=== PATIENT | male | born 1990 | race Hispanic/Latino ===

== ENCOUNTER 2016-10-25 15:07 | Emergency (ER) | payer BC ==
--- NOTE | 2016-10-25 15:42 | ED PDOC ---
Arrival/HPI - General Historian: Patient - General Time Seen by Provider: 10/25/16 15:19 - History of Present Illness Narrative History of Present Illness (Text): 10/25/16 15:42 26 y/o male, pmh including tibial plateau fracture, nkda, c/o lt. knee/calf pain s/p from jumping and landed on the lt. knee. Aching pain, painful to walk , no numbness or tingling, no dizziness, no night sweat, no other medical or psychological complaints. (Celestino Urrutia) Past Medical History - Provider Review Nursing Documentation Reviewed: Yes - Past History Past History: No Previous - Infectious Disease Hx of Infectious Diseases: None - Tetanus Immunization Tetanus Immunization: Unknown - Psychiatric Hx Psychophysiologic Disorder: No Hx Anxiety: No Hx Bipolar Disorder: No Hx Depression: No Hx Emotional Abuse: No Hx Hallucinations: No Hx Panic Disorder: No Hx Post Traumatic Stress Disorder: No Hx Psychosis: No Hx Physical Abuse: No Hx Schizophrenia: No Hx Sexual Abuse: No Hx Substance Use: No - Past Surgical History Past Surgical History: No Previous - Anesthesia Hx Anesthesia: No Hx Anesthesia Reactions: No Hx Malignant Hyperthermia: No - Suicidal Assessment Feels Threatened In Home Enviroment: No Family/Social History - Physician Review Nursing Documentation Reviewed: Yes Family/Social History: Unknown Family HX Smoking Status: Never Smoked Hx Alcohol Use: No Hx Substance Use: No Hx Substance Use Treatment: No Allergies/Home Meds Allergies/Adverse Reactions: Allergies No Known Allergies Allergy (Verified 10/25/16 15:50) Review of Systems - Review of Systems Constitutional: absent: Fatigue, Fevers Eyes: absent: Vision Changes ENT: absent: Hearing Changes Respiratory: absent: SOB, Cough Cardiovascular: absent: Chest Pain Musculoskeletal: Arthralgias, Myalgias. absent: Back Pain, Neck Pain, Joint Swelling Skin: absent: Rash, Pruritis, Skin Lesions, Laceration, Abscess, Ulcer Neurological: absent: Headache, Dizziness, Focal Weakness Psychiatric: absent: Anxiety, Depression, Suicidal Ideation Physical Exam Temperature: Afebrile Blood Pressure: Normal Pulse: Bradycardic Respiratory Rate: Normal Appearance: Positive for: Well-Appearing, Non-Toxic, Comfortable Pain Distress: Mild Mental Status: Positive for: Alert and Oriented X 3 - Systems Exam Head: Present: Atraumatic, Normocephalic Pupils: Present: PERRL Extroacular Muscles: Present: EOMI Conjunctiva: Present: Normal Mouth: Present: Moist Mucous Membranes Neck: Present: Normal Range of Motion Respiratory/Chest: Present: Clear to Auscultation, Good Air Exchange. No: Respiratory Distress, Accessory Muscle Use Cardiovascular: Present: Regular Rate and Rhythm, Normal S1, S2. No: Murmurs Abdomen: Present: Normal Bowel Sounds. No: Tenderness, Distention, Peritoneal Signs Back: Present: Normal Inspection Upper Extremity: Present: Normal Inspection. No: Cyanosis, Edema Lower Extremity: Present: Normal Inspection, Other (LLE: +ttp on the lt. calf region with swelling but no ecchymosis or bruising, +ttp on the medial aspect of the knee, negative sr sign with the achilles tendon intact, no deformity, FROM without limitation, negative sr, sensation intact, motor 5 /5, +DPPT pulses, capillary refill< 2 seconds, neurovascular intact. ). No: Edema Neurological: Present: GCS=15, Speech Normal, Motor Func Grossly Intact, Memory Normal Skin: Present: Warm, Dry, Normal Color. No: Rashes Psychiatric: Present: Alert, Oriented x 3, Normal Insight, Normal Concentration Vital Signs Temp Pulse Resp BP Pulse Ox 10/25/16 17:48 64 18 138/70 99 10/25/16 15:49 98.3 F 56 L 19 118/74 99 Medical Decision Making - Lab Interpretations I have reviewed the lab results: Yes Interpretation: Abnormal lab values (CK 440) - RAD Interpretation Training And Development Professional: Radiologist ED Course and Treatment: I was available for consultation during PA evaluation. The chart reviewed by me , and I agree with disposition. The documented history was done by the physician cook restaurant. The documented physical exam was done by the physician cook restaurant. The documented procedures were done by the physician cook restaurant. (Charlie Shearer) 10/25/16 15:52 -labs/ck -LLE venuous doppler -lt. knee xray -Toradol IM -observe and reassess 10/25/16 17:32 -Labs are non-significant except CK 440 -LLE venuous doppler show no acute DVT -Lt. knee xray show no fracture or dislocation. -Pain decreased, feeling much better. -Luis wrap applied by me to the calf for supportive treatment with neurovascular intact. -Discharge home with ibuprofen, flexeril, crutches, luis wrap, non-weight bearing , avoid gym or exercise for 1 week, follow up with your own pmd and orthopedic within 2 days, return to the ER for any new or worsening signs or symptoms. you will need MRI if the pain or swelling doesn't improved, (Celestino Urrutia) - Lab Interpretations Lab Results: 10/25/16 16:06 10/25/16 16:06 Lab Results 10/25/16 16:06: Sodium 142, Potassium 4.5, Chloride 104, Carbon Dioxide 30, Anion Gap 13, BUN 16, Creatinine 1.1, Est GFR ( Amer) > 60, Est GFR (Non- Af Amer) > 60, Random Glucose 92, Calcium 10.3, Total Bilirubin 1.0, AST 38, ALT 39, Alkaline Phosphatase 68, Total Creatine Kinase 440 H, CK-MB (CK-2) 3.7 H , CK-MB (CK-2) % Cancelled, Total Protein 8.8 H, Albumin 5.0 H, Globulin 3.8, Albumin/Globulin Ratio 1.3 10/25/16 16:06: WBC 7.2, RBC 4.90, Hgb 14.7, Hct 41.8 L, MCV 85.3, MCH 30.0, MCHC 35.2, RDW 12.7, Plt Count 164, MPV 9.5, Gran % 72.4 H, Lymph % (Auto) 18.6 L, [place] % (Auto) 8.2 H, Eos % (Auto) 0.7 L, Baso % (Auto) 0.1, Gran # 5.20, Lymph # 1.3, [place] # 0.6, Eos # 0.1, Baso # 0.01 - RAD Interpretation Radiology Orders: 10/25/16 15:53 KNEE WITH PATELLA LEFT 3 VIEW [RAD] Stat DUPLEX LOWER EXTRM VEIN LEFT [US] Stat Lt. knee: no fracture/dislocation/joint effusion LLE venuous doppler: as per preliminary report, no acute DVT (Celestino Urrutia) - Medication Orders Current Medication Orders: Discontinued Medications Ketorolac Tromethamine (Toradol) 60 mg IM STAT STA Stop: 10/25/16 15:55 Last Admin: 10/25/16 16:19 Dose: 60 mg - PA / FILM EXAMINER / Resident Statement MD/DO has reviewed & agrees with the documentation as recorded. Disposition/Present on Arrival - Present on Arrival Any Indicators Present on Arrival: No History of DVT/PE: No History of Uncontrolled Diabetes: No Urinary Catheter: No History of Decub. Ulcer: No History Surgical Site Infection Following: None - Disposition Have Diagnosis and Disposition been Completed?: Yes Disposition Time: 15:52 Patient Plan: Discharge - Disposition Diagnosis: Swelling of calf, Leg injury Disposition: HOME/ ROUTINE Condition: IMPROVED Additional Instructions: Discharge home with ibuprofen, flexeril, crutches, luis wrap, non-weight bearing , avoid gym or exercise for 1 week, follow up with your own pmd and orthopedic within 2 days, you will need MRI if the pain or swelling doesn't improved, return to the ER for any new or worsening signs or symptoms. Prescriptions: Cyclobenzaprine [Cyclobenzaprine HCl] 10 mg PO TID PRN #21 tab PRN Reason: Other Ibuprofen [Motrin Tab] 600 mg PO QID PRN #30 tab PRN Reason: Other Referrals: Vishal Rodriguez III, MD [Medical Doctor] - Follow up with primary [facility] at [facility] [place] [Outside] - Follow up with primary Forms: WORK NOTE
[2016-10-25 16:08] VITALS: TEMP 98.3; O2SAT 99; BMI 31.3
[2016-10-25 16:13] LABS: ADD MANUAL DIFF? NO
[2016-10-25 16:20] LABS: BASO # 0.01 K/mm3 (0.0-2.0); BASO % 0.1 % (0.0-3.0); EOS # 0.1 (0.0-0.7); EOS % 0.7 % (1.5-5.0); GRAN % 72.4 % (50.0-68.0); HEMATOCRIT 41.8 % (42.0-52.0); LYMPH # 1.3 (1.2-3.4); LYMPH % 18.6 % (22.0-35.0); MEAN CELL VOLUME 85.3 fL (80.0-105.0); MEAN CORPUSCULAR HGB CONC 35.2 g/dl (31.0-37.0); MEAN PLATELET VOLUME 9.5 fl (7.0-11.0); MONO # 0.6 (0.1-0.6); MONO % 8.2 % (1.0-6.0); PLATELET COUNT 164 10^3/uL (120.0-450.0); RED CELL DISTRIBUTION WIDTH 12.7 % (11.5-14.5); WHITE BLOOD COUNT 7.2 10^3/ul (4.5-11.0)
[2016-10-25 16:27] LABS: ALB/GLOB RATIO 1.3 (1.1-1.8); ALKALINE PHOSPHATASE 68 U/L (38-133); ALT/SGPT 39 U/L (7-56); AST/SGOT 38 U/L (15-59); BLOOD UREA NITROGEN 16 mg/dL (7-21); CALCIUM 10.3 mg/dL (8.4-10.5); CARBON DIOXIDE 30 mmol/L (21-33); CHLORIDE 104 mmol/L (98-107); GFR AFRICAN-AMERICAN > 60; GLUCOSE,RANDOM 92 mg/dL (70-110); POTASSIUM 4.5 mmol/L (3.6-5.0); SODIUM 142 mmol/L (132-148); TOTAL PROTEIN 8.8 g/dL (5.8-8.3)
--- NOTE | 2016-10-25 17:47 | RAD ---
PROCEDURE: Left Knee Radiographs. HISTORY: COMPARISON: None available. FINDINGS: BONES: No acute displaced fracture. JOINTS: No dislocation. JOINT EFFUSION: No significant joint effusion. OTHER FINDINGS: None. IMPRESSION: No acute displaced fracture, dislocation, or significant joint effusion identified. If symptoms persist, or if there is continued clinical concern, x-ray follow-up in 7-10 days should be considered.
[2016-10-25 17:48] VITALS: BP 138/70; PULSE 64; RESP 18
--- NOTE | 2016-10-25 20:42 | US ---
PROCEDURE: Left lower extremity venous US HISTORY: Leg pain and swelling. Evaluate for DVT. PHYSICIAN(S): Regan Box MD. TECHNIQUE: Duplex sonography and color-flow Doppler with graded compression were used to evaluate the deep venous system of the left lower extremity. FINDINGS: The visualized deep venous system of the left lower extremity is sonographically normal and compressible. Normal wave forms and augmentation are seen. There is no sonographic evidence for deep venous thrombosis in the visualized segments of the left lower extremity. IMPRESSION: 1. No sonographic evidence for deep venous thrombosis in the visualized segments of the left lower extremity.
== END 2016-10-25 17:48 | disposition home or self-care (01) ==
LOC: ED 15:07
DX: M79.89 Other specified soft tissue disorders (principal); S89.92XA Unspecified injury of left lower leg, initial encounter; X58.XXXA Exposure to other specified factors, initial encounter; Y93.39 Activity, other involving climbing, rappelling and jumping off
CPT/HCPCS: 73562; 80053; 82550; 82553; 85025; 93971; 96372; 99284; J1885